=== PATIENT | male | born 1985 ===

== ENCOUNTER 2018-05-04 13:44 | Emergency (ER) | payer MEDICAID ==
[2018-05-04 14:13] VITALS: O2SAT 98
[2018-05-04] MEDS ORDERED: HALOPERIDOL LACTATE 5 MG/ML SOL IM ONE (14:36)
[2018-05-04] MEDS ORDERED: LORAZEPAM 2 MG/ML SOL IM PRN (14:36)
[2018-05-04] MEDS ORDERED: HALOPERIDOL LACTATE 5 MG/ML SOL ONE (14:38)
[2018-05-04] MEDS ORDERED: LORAZEPAM 2 MG/ML SOL ONE (14:38)
[2018-05-04 16:09] LABS: ALKALINE PHOSPHATASE 117 IU/L (46-116); ALT 15 IU/L (14-63); AST 14 IU/L (15-37); BILIRUBIN,TOTAL 0.2 mg/dl (0.2-1.0); BLOOD UREA NITROGEN 7 mg/dl (7-18); CALCIUM 8.8 mg/dl (8.5-10.1); CARBON DIOXIDE 26.5 mEq/L (21-32); CHLORIDE 105 mMol/L (98-107); CREATININE 0.78 mg/dl (0.80-1.30); GLOM FILT RATE 115 mL/min (>60); GLUCOSE 102 mg/dl (74-106); POTASSIUM 3.4 mMol/L (3.5-5.1); SALICYLATE 5.6 mg/dl (2.8-30.0); SODIUM 140 mMol/L (136-145); THYROID STIMULATING HORMONE 1.147 uIU/ml (0.358-3.740); TOTAL PROTEIN 6.9 gm/dl (6.4-8.2)
[2018-05-04 16:11] LABS: ALCOHOL 0.004 gm/dl (0.000-0.08)
[2018-05-04 16:12] LABS: ACETAMINOPHEN < 2 ug/ml (10-30)
[2018-05-04 16:32] LABS: APPEARANCE,URINE Clear; BILIRUBIN,URINE NEGATIVE (NEGATIVE); COLOR,URINE Dark yellow; GLUCOSE, URINE (UA) NEGATIVE (NEGATIVE); KETONES,URINE TRACE (NEGATIVE); LEUKOCYTE ESTERASE ,URINE TRACE (NEGATIVE); NITRATE,URINE NEGATIVE (NEGATIVE); OCCULT BLOOD,URINE NEGATIVE (NEG-TRACE); UROBILINOGEN,URINE 0.2 (0.2-1.0 EU)
[2018-05-04 16:44] LABS: BASOPHILS % (AUTO) 0 % (0-3); EOSINOPHILS % (AUTO) 1 % (0-9); HEMATOCRIT 44 % (39-53); HEMOGLOBIN 14.5 gm/dl (13.5-17.7); LYMPHOCYTES % (AUTO) 18.4 % (10-50); MEAN CORPUSCULAR HEMOGLOBIN 29.6 pg (27.0-32.0); MEAN CORPUSCULAR VOLUME 90 fL (80-100); MONOCYTES % (AUTO) 5.6 % (0-12); NEUTROPHILS % (AUTO) 74.4 % (37-80)
[2018-05-04 16:46] LABS: AMPHETAMINES NEGATIVE (NEGATIVE); BACTERIA TRACE (< 1+); BARBITUATES NEGATIVE (NEGATIVE); BENZODIAZEPINES NEGATIVE (NEGATIVE); CANNABINOL(THC) POSITIVE (NEGATIVE); COCAINE(COC) NEGATIVE (NEGATIVE); CRYSTALS NEGATIVE (0-3 AVE/HPF); EPITHELIAL CELLS 0-2 (SQUAMOUS); METHADONE NEGATIVE (NEGATIVE); METHAMPHETAMINES NEGATIVE (NEGATIVE); OPIATES(OP13) NEGATIVE (NEGATIVE); OXYCODONE(OXY) NEGATIVE (NEGATIVE); PROPOXYPHENE(PPX) NEGATIVE (NEGATIVE); RBC,URINE 0-2 (0-3AV/HPF); TRICYCLIC ANTIDEPRESSANTS NEGATIVE (NEGATIVE)
[2018-05-04 17:00] VITALS: BP 107/69; PULSE 69; RESP 20; TEMP 98.1
== END 2018-05-04 17:18 | disposition short-term general hospital (02) | DRG 885 ==
LOC: ED 13:44
DX: F23 Brief psychotic disorder (principal); R44.3 Hallucinations, unspecified; F22 Delusional disorders
CPT/HCPCS: 36415; 80053; 80305; 80307; 81001; 84443; 85025; 96372; 99284; 99285; J1630; J2060